=== PATIENT | female | born 2000 | race Caucasian/White ===

== ENCOUNTER 2025-01-10 19:12 | Outpatient (REF) | payer BC, SELFPAY ==
--- OUTSIDE RECORDS SUMMARY | 2025-01-10 14:00 | XMS_ITS | Encounter Summary ---
Author Organization [facility] Address [address] [place] [address] Care Team Providers Care Program Control Analyst Name Role Phone Unavailable Primary Care Provider Unavailabl e Reason for Visit * Reason Comments Well Women Visit Encounter Details Date Type Department Care Team (Late st Contact Info) Description 01/10/2025 2:00 PM EDT Office Visit [facility] [address] [facility] [place] [id number] Selena Harris PA [address] [facility] [place] [address] Well woman exam with routine gynecological exam; Encounter for surveillance of contraceptive pills Social History Tobacco Use Types Packs/Day Years Used Date Smoking Tobacco: Never Assessed Comments Unknown Sex and Gender Information Value Date Recorded Sex Assigned at Not on file Legal Sex Female 11:08 PM EDT Gender Identity Not on file Sexual Orientation Not on file documented as of this encounter Last Filed Vital Signs Vital Sign Reading Time Taken Comments Blood Pressure 112/74 01/10/2025 2:23 PM EDT Pulse - - Temperature - - Respiratory Rate - - Oxygen Saturation - - Inhaled Oxygen Concentration - - Weight 74.4 kg (164 lb) 01/10/2025 2:23 PM EDT Height - - Body Mass Index - - documented in this encounter Progress Notes * JULIANE Funes - 01/10/2025 2:00 PM EDT Reason for Appointment: Patient ID: Jaylyn Tejada is a 24 y.o. female who presents for Well Women Visit Patient presents today for Annual Exam. MEDICATIONS Current Outpatient Medications Medication Instructions norethindrone (AMY) 0.35 mg, Oral, Every morning ALLERGIES No Known Allergies PROBLEMS Active Ambulatory Problems Diagnosis Date Noted No Active Ambulatory Problems Resolved Ambulatory Problems Diagnosis Date Noted No Resolved Ambulatory Problems No Additional Past Medical History HISTORY PAST MEDICAL HISTORY SOCIAL HISTORY History reviewed. No pertinent past medical history. Social History Tobacco Use Smoking status: Not on file Smokeless tobacco: Not on file Substance Use Topics Alcohol use: Not on file Drug use: Not on file FAMILY HISTORY No family history on file. SURGICAL HISTORY History reviewed. No pertinent surgical history. REVIEW OF SYSTEMS Review of Systems: Review of Systems Constitutional: Negative. HENT: Negative. Eyes: Negative. Respiratory: Negative. Cardiovascular: Negative. Gastrointestinal: Negative. Genitourinary: Negative. Musculoskeletal: Negative. Skin: Negative. Neurological: Negative. All other systems reviewed and are negative. Hematological: Negative. Endocrine: Negative. Allergic/Immunologic: Negative. OBJECTIVE Objective: Physical Exam Constitutional: Appearance: Normal appearance. She is well-developed. Genitourinary: Vulva normal. Right Adnexa: not tender and no mass present. Left Adnexa: not tender and no mass present. No cervical discharge. Breasts: Breasts are soft. Right: Normal. Left: Normal. HENT: Head: Normocephalic. Nose: Nose normal. Mouth/Throat: Mouth: Mucous membranes are moist. Cardiovascular: Rate and Rhythm: Normal rate and regular rhythm. Pulmonary: Effort: Pulmonary effort is normal. Breath sounds: Normal breath sounds. Abdominal: General: Bowel sounds are normal. There is no distension. Palpations: Abdomen is soft. Tenderness: There is no abdominal tenderness. There is no guarding or rebound. Musculoskeletal: General: No swelling. Normal range of motion. Cervical back: Normal range of motion. Right lower leg: No edema. Left lower leg: No edema. Neurological: General: No focal deficit present. Mental Status: She is alert and oriented to person, place, and time. Skin: General: Skin is warm and dry. Psychiatric: Mood and Affect: Mood normal. Behavior: Behavior normal. Vitals and nursing note reviewed. Exam conducted with a door to door selling agent present. Vitals: There is no height or weight on file to calculate BMI. BP: 112/74 No LMP recorded. ASSESSMENT & PLAN ICD-10-CM 1. Well woman exam with routine gynecological exam Z01.419 Pap Smear 2. Encounter for surveillance of contraceptive pills Z30.41 norethindrone (Amy) 0.35 MG tablet Annual Exam: Patient presents today for an annual exam. Patient states she is doing well and has no complaints. Pap was obtained without difficulty. No orders of the defined types were placed in this encounter. Follow Up: Patient is to return in one year for annual unless needed otherwise. Documented by Rohini Moore LPN on behalf of: JULIANE Funes documented in this encounter Plan of Treatment Upcoming Encounters Date Type Department Care Team (Late st Contact Info) Description 01/14/2026 2:00 PM EDT Office Visit [facility] [address] [facility] [place] [address] Selena Harris PA [address] [place] [address] Scheduled Orders Name Type Priority Associated Diagnoses Orde r Schedule Pap Smear Pathology and Cytology Routine Well woman exam with routine gynecological exam Ordered: 01/10/2025 documented as of this encounter Visit Diagnoses Diagnosis Well woman exam with routine gynecological exam Routine gynecological examination Encounter for surveillance of contraceptive pills documented in this encounter
--- OUTSIDE RECORDS SUMMARY | 2025-01-10 19:16 | XMS_ITS | Clinical Summary ---
Author Organization [facility] Healthcare Address [address] [address] Care Team Providers Care Bait Painter Name Role Phone Unavailable Primary Care Provider Unavailabl e Allergies No known active allergies Medications norethindrone (Amy) 0.35 MG tabletIndications :Encounter for surveillance of contraceptive pills Take 1 tablet (0.35 mg) by mouth in the morning. 84 tablet 2 01/11/20 25 025 Active norethindrone (Amy) 0.35 MG tabletIndications :Encounter for surveillance of contraceptive pills Take 1 tablet (0.35 mg) by mouth in the morning. 84 tablet 11/29/19 25 025 Discontin ued(Reord er) norethindrone (Amy) 0.35 MG tabletIndications :Encounter for surveillance of contraceptive pills Take 1 tablet (0.35 mg) by mouth in the morning. 90 tablet 12/25/19 25 025 Discontin ued(Reord er) buPROPion SR (Wellbutrin SR) 150 MG 12 hr tabletIndications :Depression with anxiety Take 1 tablet (150 mg) by mouth in the morning. Take 1 tablet daily for 3 days, then take 1 tablet daily for 4 days. Quit smoking on day 7 and continue to take medication twice daily.. 90 tablet 3 03/31/20 23 025 Discontin ued(Other ) Encounters Date Type Department Care Team Description 01/10/2025 2:00 PM EDT Office Visit [facility] [address] [place] [address] [place] [address] Selena Harris PA Well woman exam with routine gynecological exam; Encounter for surveillance of contraceptive pills 01/10/2025 Bamboo flowsheet [facility] [address] [place] [address] Selena Harris PA 01/09/2025 Travel 12/24/[address] [facility] [address] [place] [address] Lilia Aleman MA Encounter for surveillance of contraceptive pills 12/03/2024 [address] [facility] [address] [place] [address] Ely Ureña NP 11/28/[address] [facility] [address] [place] [address] Lilia Aleman MA Encounter for surveillance of contraceptive pills 11/16/[address] [facility] [address] [place] [address] Mo Aceves DO Encounter for surveillance of contraceptive pills from Last 3 Months Social History Tobacco Use Types Packs/Day Years Used Date Smoking Tobacco: Never Assessed Comments Unknown Sex and Gender Information Value Date Recorded Sex Assigned at Not on file Legal Sex Female 11:08 PM EDT Gender Identity Not on file Sexual Orientation Not on file Last Filed Vital Signs Vital Sign Reading Time Taken Comments Blood Pressure 112/74 01/10/2025 2:23 PM EDT Pulse - - Temperature - - Respiratory Rate - - Oxygen Saturation - - Inhaled Oxygen Concentration - - Weight 74.4 kg (164 lb) 01/10/2025 2:23 PM EDT Height - - Body Mass Index - - Plan of Treatment Upcoming Encounters Date Type Department Care Team (Late st Contact Info) Description 01/14/2026 2:00 PM EDT Office Visit [facility] [address] [place] [address] Selena Harris PA [address] [place] [address] [address] [place], [facility] Insurance [facility]
--- OUTSIDE RECORDS SUMMARY | 2025-01-10 19:16 | XMS_ITS | Encounter Summary ---
Author Organization [facility] Address [address] [facility] [place] [address] Care Team Providers Care Ticket Manager Name Role Phone Unavailable Primary Care Provider Unavailabl e Encounter Details Date Type Department Care Team (Late st Contact Info) Description 01/10/2025 Bamboo flowsheet [facility] [address] [facility] [place] [address] Selena Harris PA [address] [place] [address] [place], [facility] Social History Tobacco Use Types Packs/Day Years Used Date Smoking Tobacco: Never Assessed Comments Unknown Sex and Gender Information Value Date Recorded Sex Assigned at Not on file Legal Sex Female 11:08 PM EDT Gender Identity Not on file Sexual Orientation Not on file documented as of this encounter Plan of Treatment Upcoming Encounters Date Type Department Care Team (Late st Contact Info) Description 01/14/2026 2:00 PM EDT Office Visit [facility] [address] [facility] [place] [id number] Selena Harris PA [address] [place] [address] [place], [place] [id number] documented as of this encounter Visit Diagnoses Not on filedocumented in this encounter
--- OUTSIDE RECORDS SUMMARY | 2025-01-10 19:16 | XMS_ITS | Encounter Summary ---
Author Organization [facility] Address [address] [facility] [place] [address] Care Team Providers Care Winding Department Supervisor Name Role Phone Unavailable Primary Care Provider Unavailabl e Encounter Details Date Type Department Care Team (Latest Contact Info) Description 01/09/2025 Travel Social History Tobacco Use Types Packs/Day Years [...] EDT Office Visit [facility] [address] [facility] [place] [phone] Selena Harris PA [address] [facility] [place] [address] documented as of this encounter Visit Diagnoses Not on filedocumented in this encounter
--- OUTSIDE RECORDS SUMMARY | 2025-01-10 19:16 | XMS_ITS | Encounter Summary ---
Author Organization [facility] Address [address] [place] [address] Care Team Providers Care Reconciliation Machine Operator Name Role Phone Preethi Avendano DO Primary Care Provider Encounter Details Date Type Department Care Team (Late st Contact Info) Description 04/16/2016 FollowUp Telephone Encounter [facility] General Surgery [address] [place] [address] Renetta Perez RN Social History Tobacco Use Types Packs/Day Years Used Date Smoking Tobacco: Never Smokeless Tobacco: Never Alcohol Use Standard Drinks/Week Comments No 0 (1 standard drink = 0.6 oz pur e alcohol) Comments No Sex and Gender Information Value Date Recorded Sex Assigned at Not on file Legal Sex Female 12:28 PM EST Gender Identity Not on file Sexual Orientation Not on file documented as of this encounter Plan of Treatment Not on file documented as of this encounter Visit Diagnoses Not on filedocumented in this encounter Care Teams Reconciliation Machine Operator Relationship Specialty Start Date End Date Preethi Avendano DO PCP - General 04/27/14 documented as of this encounter
--- OUTSIDE RECORDS SUMMARY | 2025-01-10 19:16 | XMS_ITS | Clinical Summary ---
Author Organization [facility] Address [id number] [address] [place] [address] Care Team Providers Care Egg Producer Name Role Phone Mo Aceves DO Primary Care Provider [phone] Allergies No known active allergies Medications NATALIA 0.35 mg tablet Take 1 tablet (0.35 mg total) by mouth. 01/13/2024 Active Active Problems No known active problems Social History Tobacco Use Types Packs/Day Years Used Date Smoking Tobacco: Never Smokeless Tobacco: Never Tobacco Cessation:Counseling Given: Not Answered Childcare Answer Date Recorded Childcare Unknown 12/12/2018 Employment Answer Date Recorded Employment Unknown 12/12/2018 Hunger Screening Answer Date Recorded Within the past 12 months we worried whether our food would run out before we got money to buy more. Never True 10/03/2024 Within the past 12 months th e food we bought just didn't last and we didn't have money to get more. Never True 10/03/2024 Comments No Sex and Gender Information Value Date Recorded Sex Assigned at Not on file Legal Sex Female 5:10 PM EDT Gender Identity Not on file Sexual Orientation Not on file Last Filed Vital Signs Vital Sign Reading Time Taken Comments Blood Pressure 144/81 10/03/2024 1:54 PM EDT Pulse 82 10/03/2024 1:54 PM EDT Temperature 36.6 C (97.8 F) 10/03/2024 1:54 PM EDT Respiratory Rate 16 10/03/2024 1:54 PM EDT Oxygen Saturation 100% 10/03/2024 1:54 PM EDT Inhaled Oxygen Concentration - - Weight 76.2 kg (168 lb) 10/03/2024 1:54 PM EDT Height 165.1 cm (5' 5 ) 10/03/2024 1:54 PM EDT Body Mass Index 27.96 10/03/2024 1:54 PM EDT Plan of Treatment Health Maintenance Due Date Last Done Comments Depression Screening 2012 Adult BMI Follow Up Plan 2018 Pap Smear 2021 DTaP,Tdap and Td Vaccines (4 - Tdap) 10/13/2022 10/13/2012, 03/02/2005, 2000 Influenza Vaccine 03/04/2025 Adult BMI Screening 10/03/2025 10/03/2024 Tobacco Screening 10/03/2025 10/03/2024 Medical Devices Not on file Insurance [facility] Care Teams Egg Producer Relationship Specialty Start Date End Date Mo Aceves DO [address] [place], [place] [address] [address] PCP - General Obstetrics & Gynecology 10/03/24
== END 2025-01-10 19:13 | disposition home or self-care (01) ==
LOC: LAB 19:12
PROVIDERS: Visit Provider Physician Assistant
DX: Z01.419 Encounter for gynecological examination (general) (routine) without abnormal findings (principal)
CPT/HCPCS: 88175